=== PATIENT | female | born 1965 | race Hispanic/Latino ===

== ENCOUNTER 2018-11-26 07:01 | Day surgery (SDC) | payer MEDICARE, OTHER ==
[2018-11-26] MEDS ORDERED: ASPIRIN EC 325 MG TAB PO NR (07:17)
[2018-11-26] MEDS ORDERED: SODIUM CHLORIDE 0.9% 500 ML 500 ML IV SCH (08:00)
[2018-11-26 08:01] LABS: Red Blood Count 4.17 M/mm3 (3.65-5.03)
[2018-11-26 08:02] LABS: Basophils % (Auto) 0.7 % (0.0-1.8); Eosinophils # (Auto) 0.3 K/mm3 (0.0-0.4); Eosinophils % (Auto) 5.1 % (0.0-4.3); Hemoglobin 12.7 gm/dl (10.1-14.3); Lymphocytes # (Auto) 2.4 K/mm3 (1.2-5.4); Lymphocytes % (Auto) 36.4 % (13.4-35.0); Mean Corpuscular HGB Conc 34 % (30-34); Mean Corpuscular Volume 91 fl (79-97); Monocytes # (Auto) 0.7 K/mm3 (0.0-0.8); Platelet Count 337 K/mm3 (140-440); Red Cell Distribution Width 13.6 % (13.2-15.2)
[2018-11-26 08:13] LABS: BUN/Creatinine Ratio 18; Blood Urea Nitrogen 14 mg/dL (7-17); Hemolysis Index 6
[2018-11-26 08:16] LABS: INR 0.89 (0.87-1.13)
[2018-11-26] MEDS ORDERED: HEPARIN/NS 5000 UNIT/500ML 1,000 ML IR ONE (09:20)
[2018-11-26] MEDS: MIDAZOLAM 2 MG/2 ML INJ ONE ×2 (09:59→10:05)
[2018-11-26] MEDS: fentaNYL 100 MCG/2 ML INJ ONE ×2 (09:59→10:05)
[2018-11-26] MEDS: VERAPAMIL 5 MG/2 ML INJ ONE ×3 (10:00→10:11)
[2018-11-26] MEDS: LIDOCAINE (2%) 20 MG/1 ML VIAL 20 ML MDV INFILTRATI ONE ×2 (10:00→10:08)
[2018-11-26] MEDS: HEPARIN 10,000 UNITS/10 ML VIAL ONE ×3 (10:00→10:11)
[2018-11-26] MEDS: NITROGLYCERIN SYRINGE 3 ML ONE ×2 (10:01→10:11)
--- NOTE | 2018-11-26 10:39 | Short Stay Summary ---
Short Stay Documentation Date of service: 11/26/18 - History H&P: obtained from office - Allergies and Medications Current Medications: Allergies gabapentin Adverse Reaction (Verified 11/26/18 08:01) Dizziness hydrocodone [From Vicodin] Adverse Reaction (Verified 11/26/18 08:00) Dizziness Home Medications Medication Instructions Recorded Confirmed Last Taken Type ALBUTEROL Inhaler (OR & NICU) 1 puff INHALATION DAILY PRN 11/26/18 11/26/18 11/20/18 History [ProAir HFA Inhaler] 1 ALPRAZolam [Xanax TAB] 0.25 mg PO DAILY PRN 11/26/18 11/26/18 11/24/18 History 0.25mg AtorvaSTATin [Lipitor] 40 mg PO DAILY 11/26/18 11/26/18 11/25/18 History 40 mg Losartan [Cozaar] 25 mg PO DAILY 11/26/18 11/26/18 11/12/18 History 25 mg Nitroglycerin [Nitrostat] 0.4 mg SL DAILY PRN 11/26/18 11/26/18 11/22/18 History 0.4mg Omeprazole 40 mg PO DAILY 11/26/18 11/26/18 11/22/18 History 40 mg metFORMIN 500 mg PO BID 11/26/18 11/26/18 11/20/18 History 500 mg Active Medications Sodium Chloride (Nacl 0.9% 500 Ml) 500 mls @ 50 mls/hr IV DIRECT JOHN Stop: 11/26/18 17:59 Last Admin: 11/26/18 08:34 Dose: 50 mls/hr Documented by: - Brief post op/procedure progress note Date of procedure: 11/26/18 Pre-op diagnosis: cp Post-op diagnosis: same Procedure: see report Anesthesia: local Estimated blood loss: none Pathology: none - Disposition Condition at discharge: Good Disposition: DC-01 TO HOME OR SELFCARE - Discharge Diagnoses (1) Chest pain Status: Acute Qualifiers: Chest pain type: unspecified Qualified Code(s): R07.9 - Chest pain, unspecified (2) Hyperlipemia, mixed Status: Chronic (3) Hypertension Status: Chronic Qualifiers: Hypertension type: essential hypertension Qualified Code(s): I10 - Essential (primary) hypertension (4) CAD (coronary artery disease) Status: Chronic Qualifiers: Coronary Disease-Associated Artery/Lesion type: [place] artery [place] vs. transplanted heart: [place] heart Associated angina: with unstable angina Qualified Code(s): I25.110 - Atherosclerotic heart disease of [place] coronary artery with unstable angina pectoris (5) Diabetes Status: Acute Qualifiers: Diabetes mellitus type: type 2 Diabetes mellitus termite control technician insulin use: with termite control technician use Diabetes mellitus complication status: without complication Qualified Code(s): E11.9 - Type 2 diabetes mellitus without complications; Z79.4 - care home (current) use of insulin Short Stay Discharge Plan Activity: advance as tolerated Diet: low fat, low cholesterol, low salt Wound: keep clean and dry Special Instructions: hold Metformin (for two days) Follow up with: SOLOMON ALVAREZ MD [Primary Care Provider] - 7 Days
--- NOTE | 2018-11-26 10:47 | Cardiac Catherization Report ---
LEFT HEART CATHETERIZATION ORDERING PHYSICIAN: Dr. Gutierrez. CLINICAL INFORMATION: This is a 53-year-old female with history of smoking, hypertension, hyperlipidemia, recurrent chest pain despite negative stress test, here for left heart catheterization for suspected coronary artery disease. Procedure was done under moderate sedation. Total sedation time was 15 minutes, started 10:05 a.m., finished at 10:20 a.m. Procedure was done via the right radial artery, sterile technique, local anesthesia, 6-Macedonian radial sheath inserted. FOLLOWING FINDINGS: Left system. JL3.5 catheter. Left main is large and patent, bifurcates into a medium caliber LAD with patent, mild irregularities in the midsection. Diagonal 1 is a small caliber vessel that is patent, has a 20% lesion. Rest of LAD is patent. Ramus is a medium caliber vessel, proximal 30%. Circumflex is a large dominant vessel and AV groove is large and patent. OM1, large caliber vessel, patent. LPDA is a small caliber vessel that is patent. RCA engaged with JR4, is a nondominant vessel, patent with mild luminal irregularities. LV gram done in CYPRIOT and PHILLIPS view shows normal LV function. LVEDP 18 mmHg, LV is 105, aortic is 105/65. No gradient across the aortic valve on pullback. A 5-Macedonian catheters all taken over guidewire. A 6-Macedonian radial sheath was discontinued. Radial band applied. No hematoma, no bleeding. SUMMARY: Left main patent, LAD mid 20-30%, diagonal 1 patent. Circumflex large dominant, patent. OM1 large patent. LPDA is small, patent with mild irregularities. RCA small, nondominant, patent with mild luminal irregularities. Nonobstructive coronary artery disease. Treat medically. Normal LV function. Discussed this in detail with the patient and the patient's family. JOB# [id number] JAZZ/MARCELINO
[2018-11-26] MEDS ORDERED: ACETAMINOPHEN 325 MG TAB ONE (12:11)
[2018-11-26] MEDS ORDERED: ACETAMINOPHEN 325 MG TAB PO ONE (12:12)
[2018-11-26 13:41] VITALS: BP 113/62
== END 2018-11-26 14:15 | disposition home or self-care (01) ==
LOC: CATHLABREC 07:01
PROVIDERS: ATTEND Internal Medicine
DX: R07.89 Other chest pain (principal); I25.10 Atherosclerotic heart disease of native coronary artery without angina pectoris; I10 Essential (primary) hypertension; E78.2 Mixed hyperlipidemia; E11.9 Type 2 diabetes mellitus without complications; J43.9 Emphysema, unspecified; G47.30 Sleep apnea, unspecified; K21.9 Gastro-esophageal reflux disease without esophagitis; M19.90 Unspecified osteoarthritis, unspecified site; F32.9 Major depressive disorder, single episode, unspecified; F41.9 Anxiety disorder, unspecified; Z80.8 Family history of malignant neoplasm of other organs or systems; Z82.61 Family history of arthritis; Z79.84 Long term (current) use of oral hypoglycemic drugs; Z79.899 Other long term (current) drug therapy; Z87.891 Personal history of nicotine dependence; Z90.13 Acquired absence of bilateral breasts and nipples; Z90.710 Acquired absence of both cervix and uterus; Z98.890 Other specified postprocedural states; Z82.5 Family history of asthma and other chronic lower respiratory diseases; Z84.89 Family history of other specified conditions; Z84.1 Family history of disorders of kidney and ureter; Z82.49 Family history of ischemic heart disease and other diseases of the circulatory system; Z88.8 Allergy status to other drugs, medicaments and biological substances
CPT/HCPCS: 36415; 80048; 85025; 85610; 85730; 93005; 93010; 93458; 99156; C1894; J1644; J2250; J3010; J7040; Q9967

== ENCOUNTER 2019-03-27 10:00 | Emergency (ER) | payer MEDICARE ==
[2019-03-27 10:45] LABS: Basophils % (Auto) 0.6 % (0.0-1.8); Eosinophils # (Auto) 0.1 K/mm3 (0.0-0.4); Eosinophils % (Auto) 2.2 % (0.0-4.3); Hematocrit 37.2 % (30.3-42.9); Hemoglobin 12.4 gm/dl (10.1-14.3); Lymphocytes # (Auto) 0.5 K/mm3 (1.2-5.4); Lymphocytes % (Auto) 9.5 % (13.4-35.0); Mean Corpuscular HGB Conc 33 % (30-34); Mean Corpuscular Volume 92 fl (79-97); Monocytes # (Auto) 0.6 K/mm3 (0.0-0.8); Platelet Count 286 K/mm3 (140-440); Red Blood Count 4.05 M/mm3 (3.65-5.03); Red Cell Distribution Width 14.6 % (13.2-15.2)
[2019-03-27 11:00] LABS: Bilirubin,Urine NEG (Negative); Blood,Urine SM (Negative); Color,Urine Colorless (Yellow); Protein,Urine <15 mg/dL mg/dL (Negative); Urobilinogen,Urine < 2.0 mg/dL (<2.0); WBC,Urine < 1.0 /HPF (0.0-6.0)
[2019-03-27 11:06] LABS: Alanine Aminotransferase 23 units/L (7-56); BUN/Creatinine Ratio 14; Blood Urea Nitrogen 13 mg/dL (7-17); Calcium 9.8 mg/dL (8.4-10.2); Hemolysis Index 15
[2019-03-27] MEDS ORDERED: MORPHINE 4 MG/1 ML INJ IV ONE (12:25)
[2019-03-27] MEDS ORDERED: ONDANSETRON 4 MG/2 ML INJ IV ONE (12:25)
[2019-03-27] MEDS ORDERED: IPRATROPIUM/ALBUTEROL SULFATE 3 ML AMPUL.NEB IH ONE (12:52)
--- NOTE | 2019-03-27 13:04 | Emergency Department Report ---
HPI - General Chief Complaint: Abdominal Pain Time Seen by Provider: 03/27/19 12:25 - HPI HPI: 54-year-old female presents to the emergency department with multiple complaints including left upper quadrant abdominal pain, lower midsternal chest pain, shortness of breath with a cough, bilateral leg pains. Most of the symptoms started 3-4 days ago but the patient says that the cough started yesterday. The leg pains or in her calves and thighs but she denies any rash, lesions, swelling. Patient has a past medical history of COPD, diabetes, coronary artery disease, hypertension. She went to [facility] 2 days ago for these symptoms and said that she had a CT scan of the abdomen and pelvis completed and was sent home with the diagnosis of menstrual cramps. However the patient says that she has not had a menstrual cycle for about 8 years. The patient also says that she has some "blockages in my heart" but no stents in the patient does appear to have had a catheterization in November of last year that showed nonobstructive coronary artery disease. Her primary care physician is Dr. Ruiz and insurance claims specialist is Dr. Busby. ED Past Medical Hx - Past Medical History Hx Hypertension: Yes Hx Diabetes: Yes Hx GERD: Yes Hx Arthritis: Yes Hx Headaches / Migraines: Yes Hx COPD: Yes - Surgical History Past Surgical History?: Yes Hx Breast Surgery: Yes ([facility] Mastectomy) - Social History Smoking Status: Former Smoker Substance Use Type: None - Medications Home Medications: Home Medications Medication Instructions Recorded Confirmed Last Taken Type ALPRAZolam [Xanax TAB] 0.25 mg PO DAILY PRN 11/26/18 11/26/18 11/24/18 History 0.25mg Albuterol INH(or & Nicu Only) 1 puff INHALATION DAILY PRN 11/26/18 11/26/18 11/20/18 History [ProAir HFA Inhaler] 1 AtorvaSTATin [Lipitor] 40 mg PO DAILY 11/26/18 11/26/18 11/25/18 History 40 mg Losartan [Cozaar] 25 mg PO DAILY 11/26/18 11/26/18 11/12/18 History 25 mg Nitroglycerin [Nitrostat] 0.4 mg SL DAILY PRN 11/26/18 11/26/18 11/22/18 History 0.4mg Omeprazole 40 mg PO DAILY 11/26/18 11/26/18 11/22/18 History 40 mg metFORMIN 500 mg PO BID 11/26/18 11/26/18 11/20/18 History 500 mg Cyclobenzaprine [Flexeril] 10 mg PO TID PRN #12 tablet 03/27/19 Unknown Rx ED Review of Systems ROS: Stated complaint: STOMACH PAIN Other details as noted in HPI Comment: All other systems reviewed and negative Constitutional: chills. denies: fever Eyes: denies: eye pain, vision change ENT: denies: ear pain, throat pain Respiratory: cough, shortness of breath Cardiovascular: chest pain. denies: palpitations Gastrointestinal: abdominal pain, nausea Genitourinary: denies: dysuria, discharge Musculoskeletal: arthralgia, myalgia Skin: denies: rash, lesions Neurological: denies: weakness, numbness Physical Exam - Physical Exam Vital Signs: Vital Signs 03/27/19 10:06 Temperature 97.6 F Pulse Rate 99 H Respiratory 16 Rate Blood Pressure 115/51 O2 Sat by Pulse 97 Oximetry Physical Exam: GENERAL: The patient is well-developed well-nourished. HEENT: Normocephalic. Atraumatic. Patient has moist mucous membranes. EYES: Extraocular motions are intact. NECK: Supple. Trachea is midline. CHEST/LUNGS: Mild expiratory wheezing. No tachypnea or accessory muscle use. There is no respiratory distress noted. HEART/CARDIOVASCULAR: Regular. There is no tachycardia. There is no murmur. ABDOMEN: Abdomen is soft. There is some left upper quadrant abdominal tenderness to palpation. No guarding. Patient has normal bowel sounds. There is no abdominal distention. SKIN:Skin is warm and dry. . NEURO: The patient is awake, alert, and oriented. The patient is cooperative. The patient has no focal neurologic deficits. Normal speech. MUSCULOSKELETAL: There is no tenderness or deformity. There is no evidence of acute injury. ED Course Vital Signs 03/27/19 10:06 Temperature 97.6 F Pulse Rate 99 H Respiratory 16 Rate Blood Pressure 115/51 O2 Sat by Pulse 97 Oximetry - Consultations Consultation #1: 03/27/19 17:02 I spoke with CARRIE Cash for [facility], who spoke to Dr Busby and they feel the patient is safe for d/c home and f/u with her scheduled appointment next week if she has negative troponins x 2. ED Medical Decision Making - Lab Data Result diagrams: 03/27/19 10:22 03/27/19 10:22 - EKG Data -: EKG Interpreted by Me EKG shows normal: sinus rhythm, axis, intervals, QRS complexes, ST-T waves Rate: normal - EKG Data When compared to previous EKG there are: no significant change Interpretation: unchanged when compared t (11/26/18) - Radiology Data Radiology results: report reviewed, image reviewed interpreted by me: Chest x-ray does not show any pleural effusions, pneumonia, pneumothorax, focal consolidation, or any other acute process. Abdominal x-ray shows nonspecific nonobstructive bowel gas and increased stool volume. DUPLEX DOPPLER LOWER EXTREMITY VEINS, BILATERAL INDICATION: Bilateral leg pain and swelling for 3 days. TECHNIQUE: Duplex doppler imaging was performed through the veins of both lower extremities using venous compression and other maneuvers. COMPARISON: No relevant prior imaging study available. FINDINGS: Right Common femoral vein: Negative. Right Superficial femoral vein: Negative. Right Popliteal vein: Negative. Right Calf veins: Negative. Left Common femoral vein: Negative. Left Superficial femoral vein: Negative. Left Popliteal vein: Negative. Left Calf veins: Negative. Additional findings: Moderate sized right popliteal cyst is identified.. IMPRESSION: No sonographic evidence for DVT in either lower extremity. Right popliteal cyst. Signer Name: Kwabena Sanches Jr, MD - Medical Decision Making This patient presents to the emergency department with multiple complaints including chest pain, bilateral leg pain, abdominal pain, shortness of breath. The patient just recently had a full evaluation at the emergency department and [place]. I was able to obtain the results of the CT scans that she had done there. She had a CT scan of the chest without contrast and a CT angiography of the abdomen and pelvis with runoff down the legs. There were no acute processes found. Today the patient had an EKG that was normal without ST elevation NM, ischemia or dysrhythmia. She had bilateral lower extremity venous Doppler ultrasounds that were negative for DVT or any other acute process. Chest x-ray did not show any pneumonia, pleural effusions, pneumothorax, focal consolidation, or any other acute process. Abdominal x-ray shows nonspecific nonobstructive bowel gas. The patient had unremarkable labs including CBC, metabolic panel, urinalysis, and troponins 2. The patient was given antiemetics and analgesia. Her vital signs stable throughout her ED course included being afebrile. Regarding the chest pain, I spoke with her cardiology group who feels that she is cleared for discharge home with follow-up during her previously scheduled appointment next week. Regarding her abdominal pains, given the negative labs, normal-appearing x-ray, and the CT angiography results that were obtained, the patient does not appear to have any emergent or life- threatening abdominal issue that requires admission. The patient was reevaluated multiple times over multiple hours and says she is feeling somewhat improved and is asking for discharge home. She has been instructed to follow-up with her primary care physician, insurance claims specialist, box spring maker, and to return to the ER with any worsening of her symptoms or any acute distress. - Differential Diagnosis COPD, costochondritis, NM, gastritis, constipation Critical Care Time: No Critical care attestation.: If time is entered above; I have spent that time in minutes in the direct care of this critically ill patient, excluding procedure time. ED Disposition Clinical Impression: Bilateral leg pain Chest pain Qualifiers: Chest pain type: unspecified Qualified Code(s): R07.9 - Chest pain, unspecified Abdominal pain Qualifiers: Abdominal location: generalized Qualified Code(s): R10.84 - Generalized abdominal pain COPD (chronic obstructive pulmonary disease) Qualifiers: COPD type: unspecified COPD Qualified Code(s): J44.9 - Chronic obstructive pulmonary disease, unspecified Disposition: DC-01 TO HOME OR SELFCARE Is pt being admited?: No Condition: Stable Instructions: Chest Pain (ED), Chronic Obstructive Pulmonary Disease (ED), Abdominal Pain (ED) Additional Instructions: Please follow up with your insurance claims specialist next week as previously scheduled. Please follow-up with your primary care physician and box spring maker. Return to the emergency Department with any worsening of your symptoms or any acute distress. You have been prescribed a medication that can be sedating. Therefore, this medication cannot be taken prior to driving, working, being responsible for children, and cannot be mixed with alcohol of any quantity. Prescriptions: Cyclobenzaprine [Flexeril] 10 mg PO TID PRN #12 tablet PRN Reason: Muscle Spasm Referrals: JESUS BUSBY MD [Staff Physician] - 3-5 Days Dish Machine Operator, Your [Other] - 3-5 Days Primary Care Physician, Your [Other] - 3-5 Days Time of Disposition: 16:50
--- NOTE | 2019-03-27 13:57 | XRay Report ---
ABDOMINAL SERIES WITH CHEST X-RAY ONE VIEW HISTORY: Chest pain, abdominal pain, left upper quadrant abdominal pain with associated nausea COMPARISON: None. FINDINGS: Single view of the chest is within normal limits. Normal heart size. Clear lungs. Supine and upright views of the abdomen demonstrate moderate to large fecal matter throughout the beka gth of the colon. No evidence for dilated bowel, fluid levels, free air or pathologic calcifications. The bony structures are intact. IMPRESSION: No acute process. Fecal retention. Signer Name: Kwabena Sanches Jr, MD Signed: 03/27/2019 1:52 PM Workstation Name: [id number]
--- NOTE | 2019-03-27 14:30 | Vascular Lab Report ---
DUPLEX DOPPLER LOWER EXTREMITY VEINS, BILATERAL INDICATION: Bilateral leg pain and swelling for 3 days. TECHNIQUE: Duplex doppler imaging was performed through the veins of both lower extremities using ve nous compression and other maneuvers. COMPARISON: No relevant prior imaging study available. FINDINGS: Right Common femoral vein: Negative. Right Superficial femoral vein: Negative. Right Popliteal vein: Negative. Right Calf veins: Negative. Left Common femoral vein: Negative. Left Superficial femoral vein: Negative. Left Popliteal vein: Negative. Left Calf veins: Negative. Additional findings: Moderate sized right popliteal cyst is identified.. IMPRESSION: No sonographic evidence for DVT in either lower extremity. Right popliteal cyst. Signer Name: Kwabena Sanches Jr, MD Signed: 03/27/2019 2:25 PM Workstation Name: [id number]
[2019-03-27 17:20] VITALS: BP 167/133
== END 2019-03-27 17:18 | disposition home or self-care (01) ==
LOC: ED 10:00
DX: J44.9 Chronic obstructive pulmonary disease, unspecified (principal); M79.604 Pain in right leg; M79.605 Pain in left leg; R10.12 Left upper quadrant pain; R07.89 Other chest pain; I10 Essential (primary) hypertension; E11.9 Type 2 diabetes mellitus without complications; K21.9 Gastro-esophageal reflux disease without esophagitis; M19.90 Unspecified osteoarthritis, unspecified site; G43.909 Migraine, unspecified, not intractable, without status migrainosus; Z98.890 Other specified postprocedural states; Z87.891 Personal history of nicotine dependence; Z88.8 Allergy status to other drugs, medicaments and biological substances; Z79.899 Other long term (current) drug therapy
CPT/HCPCS: 36415; 74022; 80053; 81001; 83690; 84484; 85025; 93005; 93010; 93970; 96374; 96375; 99285; J2270; J2405

== ENCOUNTER 2021-02-02 08:09 | Day surgery (SDC) | payer MEDICARE ==
[2021-02-02] MEDS ORDERED: NITROGLYCERIN 0.4 MG TAB SUBL SL ONE (10:00)
[2021-02-02 10:06] LABS: Blood Urea Nitrogen 18 mg/dL (7-17)
[2021-02-02] MEDS ORDERED: ATROPINE 0.1% (1 MG/10 ML) CARDIAC SYRINGE ONE (10:27)
[2021-02-02 10:47] VITALS: BP 88/57
--- NOTE | 2021-02-02 11:27 | Cat Scan Report ---
CTA HEART WITH AND WITHOUT CONTRAST 02/02/2021 10:07 AM TECHNIQUE: Routine ECG-gated coronary CT angiography performed on a 64-channel system. 3-D/MIP reform ats were postprocessed. Note that this exam targets the heart and the entire chest was not imaged. Al l CT scans at this location are performed using CT dose reduction for ALARA by means of automated exp osure control. HISTORY: Chest pain, high cholesterol COMPARISONS: none PREMEDICATION: See nurse's notes. FINDINGS: CARDIAC/CORONARY FINDINGS: Please see cardiology report in this particular case. EXTRACARDIAC/EXTRACORONARY FINDINGS: VISUALIZED LUNGS: Mild subpleural hypoventilatory changes are noted in both lower lobes. Minor linear scarring or segmental atelectasis in the lingula and middle lobe. No suspicious nodule. VISUALIZED MEDIASTINUM: unremarkable VISUALIZED CHEST WALL: unremarkable VISUALIZED UPPER ABDOMEN: unremarkable . IMPRESSION 1. Please see cardiology dictation in this particular case for the cardiac/coronary findings. 2. Otherwise unremarkable extracardiac/extracoronary findings. DISCLAIMER: This is a combined radiology and cardiology interpretation. Cardiology is solely responsible for rep orting of cardiac and coronary findings. Radiology is solely responsible for reporting of the extrac ardiac and extracoronary findings. Signer Name: Kwabena Sanches Jr, MD Signed: 02/02/2021 11:23 AM Workstation Name: [id number]
--- NOTE | 2021-02-03 06:17 | CT Calcium Scoring Report ---
Coronary Calcium Score Procedure: High-resolution computed tomographic imaging of the chest was performed on02/02/21 with particular attention paid to the coronary arteries. Images from the examination were analyzed for the presence and extent of coronary artery calcification, using coronary calcium quantification software. The patient tolerated the procedure well and there were no complications. The results of the coronary calcification analysis are provided below. The patient scores are compared with published data related to scores for people of a similar age and the same gender. - Findings Left Anterior Descending Artery: 56.6 Left Circumflex(LCX): 1 Total Agatson Score: 57.6 Percentile Ranking: >75 Findings: mild calcification in the ascending aorta Cardiac CTA Indication: chest pain Informed consent obtained Procedure: The patient was brought to the cardiac ct laboratory at [facility] n stable condition after a 4 hour fast. Heart rate was regulated by beta blockade. Sublingual ngt was administered. After data acquisition and reconstruction the images were processed and reviewed on the computer workstation. Multiple phases of the cardiac cycle were assessed for image interpretation. Volume rendered images, multiplanar reformated images, and maximum intensity projections images were generated and reviewed A coronary calcium score was performed via the Agatston method was performed. A separate radiology assessment of the non cardiac structures in the field of view will be provided. Superior vena cava in the field of view appears normal Inferior vena cava in the filed of view appears normal Ascending aorta in the field of view appears normal in dimension. there is mild calcification in the ascending aorta Descending aorta in the field of view appears normal Pulmonary artery in the filed of view appears normal Pulmonary veins enter the left atrium appropriately Left ventricle appears normal Right Ventricle appears normal Left atrium appears normal Left atrial appendage appears normal Right atrium appears normal Interventricular septum appears normal Interatrial septum appears normal Aortic valve appears normal Mitral Valve appears normal Intracardiac mass: none Pericardial effusion: none Coronary Angiography: Dominance: left Origins: normal Left main: normal Left anterior descending coronary artery and diagonal branches: mild non ob structive calcific plaque in the proximal vessel Circumflex coronary artery and obtuse marginal branches: mild calcific plaque seen on the non contrast study in the proximal vessel but no visualized in the presence of contrast. no luminal narrowing seen Right coronary artery: normal, non dominant the procedure was well tolerated. there were no procedural complications
== END 2021-02-02 11:15 | disposition home or self-care (01) ==
LOC: CATHLABREC 08:09 → EDSTATUS 09:45 → CATHLABREC 11:15
PROVIDERS: ATTEND Internal Medicine Cardiovascular Disease
DX: R07.89 Other chest pain (principal); I25.10 Atherosclerotic heart disease of native coronary artery without angina pectoris; E78.00 Pure hypercholesterolemia, unspecified
CPT/HCPCS: 36415; 75574; 82565; 84520; Q9967; J0461